=== PATIENT | female | born 1985 | race Two or more races ===

== ENCOUNTER → 2017-10-27 | Emergency (ER) | payer OTHER ==
[~2017-10-27] VITALS: Ht 167.6 cm; Wt 73.0 kg
[~2017-10-27] MED LIST: ANTIVERT25 M1 PO
== END | disposition home or self-care (01) ==
LOC: ER 19:33
DX: O26.891 Other specified pregnancy related conditions, first trimester (principal); K29.70 Gastritis, unspecified, without bleeding; K52.9 Noninfective gastroenteritis and colitis, unspecified; Z34.82 Encounter for supervision of other normal pregnancy, second trimester